=== PATIENT | female | born 1935 | race Caucasian/White ===

== ENCOUNTER 2019-08-12 17:44 | Emergency (ER) | payer MEDICARE ==
[2019-08-12] MEDS ORDERED: Lisinopril 10 MG TAB ONE (18:18)
[2019-08-12] MEDS ORDERED: Bisoprolol Fumarate 5 MG TAB PO SCH (18:30)
[2019-08-12 18:46] LABS: Mean Corpuscular Hemoglobin 30.6 pg (27.0-31.0); Mean Corpuscular Volume 92.7 fL (78.0-98.0); Mean Platelet Volume 8.7 fL (7.4-10.4); Platelet Count 129 thou/uL (130-400); Red Blood Cell (RBC) Count 4.23 mill/uL (4.20-5.40); White Blood Cell (WBC) Count 5.8 thou/uL (4.8-10.8)
[2019-08-12 18:55] LABS: ALT (SGPT) 17 U/L (8-55); AST (SGOT) 21 U/L (5-34); Albumin 4.1 g/dL (3.4-4.8); Alkaline Phosphatase 75 U/L (40-110); Anion Gap 13 mmol/L (10-20); BUN (Urea Nitrogen) 16 mg/dL (9.8-20.1); Bilirubin, Total 0.5 mg/dL (0.2-1.2); Calc. Creatinine Clearance 0 mL/min (70-130); Calcium 9.7 mg/dL (7.8-10.44); Carbon Dioxide 28 mmol/L (23-31); Chloride 107 mmol/L (98-107); Estimated GFR-MDRD 57; Globulin 2.8 g/dL (2.4-3.5); Glucose 95 mg/dL (83-110); Potassium 3.6 mmol/L (3.5-5.1); Protein, Total 6.9 g/dL (6.0-8.3); Sodium 144 mmol/L (136-145)
[2019-08-12 19:02] LABS: Lymphocytes 30 % (21-51); MDiff Complete? YES; Monocytes 16 % (0-10); Neutrophil 54 % (42-75); Platelet Morphology Comment Appears Adequate; RBC Morphology Normal
--- NOTE | 2019-08-16 15:24 | EKG ---
Test Reason : Blood Pressure : / mmHG Vent. Rate : 067 BPM Atrial Rate : 067 BPM P-R Int : 226 ms QRS Dur : 088 ms QT Int : 440 ms P-R-T Axes : 061 -12 055 degrees QTc Int : 464 ms Sinus rhythm with 1st degree A-V block Otherwise normal ECG Confirmed by HOLA KIDD, ADRIANO Mackenzie ([id number]), commercial production editor MILAGRO HUMMEL ([id number]) on 08/16/2019 3:23:48 PM Referred By: Confirmed By:ADRIANO SIMENTAL MD
== END 2019-08-12 19:19 | disposition home or self-care (01) ==
LOC: ERS 17:44
DX: I10 Essential (primary) hypertension (principal); Z79.899 Other long term (current) drug therapy
CPT/HCPCS: 36415; 80053; 83880; 84484; 85025; 93005

== ENCOUNTER 2019-10-19 06:56 | Outpatient (CLI) | payer MEDICARE, OTHER ==
[2019-10-19 12:28] LABS: Band 3 % (5-11); Hemoglobin 12.6 g/dL (12.0-16.0); Lymphocytes 24 % (21-51); MDiff Complete? YES; Mean Corpuscular HGB CONC 33.1 g/dL (32.0-36.0); Mean Corpuscular Hemoglobin 30.5 pg (27.0-31.0); Mean Platelet Volume 9.1 fL (7.4-10.4); Monocytes 20 % (0-10); Neutrophil 43 % (42-75); Platelet Count 136 thou/uL (130-400); Platelet Morphology Comment Appears Adequate; RBC Distribution Width 12.6 % (11.5-14.5); RBC Morphology Normal; Reactive Lymphocytes 10 % (0-10); Red Blood Cell (RBC) Count 4.14 mill/uL (4.20-5.40); White Blood Cell (WBC) Count 6.2 thou/uL (4.8-10.8)
[2019-10-20 11:43] LABS: SARS-CoV-2 MS2 Positive; SARS-CoV-2 N Gene Negative; SARS-CoV-2 S Gene Negative; SARS-CoV-2 orf1ab Negative
== END 2019-10-19 06:57 | disposition home or self-care (01) ==
LOC: LABBT 06:56
PROVIDERS: ATTEND Orthopaedic Surgery Hand Surgery
DX: Z01.812 Encounter for preprocedural laboratory examination (principal); Z11.59 Encounter for screening for other viral diseases; G56.02 Carpal tunnel syndrome, left upper limb
CPT/HCPCS: 85025; U0003; 87635

== ENCOUNTER 2019-10-23 10:29 | Day surgery (SDC) | payer MEDICARE ==
[2019-10-17 11:06] VITALS: BMI 23.1
[~2019-10-23 10:29] MED LIST: Dexamethasone 20 MG/5 ML VIAL ONE; EPHEDRINE 25 MG/5 ML SYRINGE ONE; Lidocaine 1% PF 5 ML VIAL ONE; Ondansetron PF 4 MG/2 ML Vial ONE; PROPOFOL 200 MG/20 ML VIAL ONE
[2019-10-23] MEDS ORDERED: Bupivacaine PF 0.5% 30 ML VIAL ONE (12:20)
[2019-10-23] MEDS ORDERED: Betamet Acet/Betamet Na Ph 30 MG/5 ML VIAL ONE (12:20)
[2019-10-23] MEDS ORDERED: Bacitracin Zinc Ointment 30 gm TUBE ONE (12:27)
[2019-10-23] MEDS ORDERED: Ketorolac Tromethamine 30 MG/ML VIAL ONE (15:16)
--- NOTE | 2019-10-23 16:38 | OP ---
DATE OF PROCEDURE: 10/23/2019 PREOPERATIVE DIAGNOSIS: Left carpal tunnel syndrome. POSTOPERATIVE DIAGNOSIS: Left carpal tunnel syndrome. PROCEDURE PERFORMED: Left carpal tunnel release. ESTIMATED BLOOD LOSS: 10 mL. TOURNIQUET TIME: 15 minutes. INJECTABLE: 1. 20 mL of 0.5% Marcaine. 2. 5 mL of Celestone around the area of median nerve stippling, found in the center of the transverse carpal ligament. DESCRIPTION OF PROCEDURE: After successful general endotracheal anesthesia, the limb was prepped and draped. The patient then had time-out done appropriately. We outlined incision in line with the ring finger from mediolateral as far distal as just short of Do's cardinal line and then as far proximal as 5 mm proximal to the volar wrist flexion crease. We injected this with 10 mL of 0.5% Marcaine and then waited 3 minutes, and exsanguinated the limb and inflated the tourniquet to 250 mmHg pressure. We carried the incision down through the skin to the palmaris and just on the ulnar to the palmaris. We made our 1st incision. This centered transverse carpal ligament. We identified underlying structures, and then from here, I released transverse carpal ligament using combination of [place] blade and tenotomy scissors from 1st the midpoint distally, where we protected all the nerves and we saw the motor branch, which was a type 1 takeoff. We then did the same from the midpoint proximally using combination of [place] blade and tenotomy scissors until we had released the transverse carpal ligament completely. We visualized that the median nerve had stippling without hourglass formation and some early flattening to go along with the atrophy at the median nerve in the center of transverse carpal ligament. Here, we applied 5 mL of Celestone. We released the tourniquet, obtained hemostasis, closed the incision with interrupted 4-0 nylon in a mattress pattern, placed a bulky dressing and the patient left the operating room without evidence of anesthetic or operative complication. Job ID: [id number]
== END 2019-10-23 16:39 | disposition home or self-care (01) ==
LOC: SDC 10:29
PROVIDERS: ATTEND Orthopaedic Surgery Hand Surgery
PROC: 01N50ZZ Release Median Nerve, Open Approach (ICD-10-PCS; principal; 2019-10-23)
DX: G56.03 Carpal tunnel syndrome, bilateral upper limbs (principal); I10 Essential (primary) hypertension; Z79.899 Other long term (current) drug therapy; Z88.5 Allergy status to narcotic agent
CPT/HCPCS: J0690; J0702; J1100; J1885; J2405; J2704; J3490; S0020

== ENCOUNTER 2020-03-01 17:03 | Inpatient (IN) | payer MEDICARE ==
--- NOTE | 2020-03-01 19:57 | PDOC.FPRHP ---
- History of Present Illness Chief Complaint: light headed History of Present Illness: Pt is a 84 yo F with PMH of HTN, HLD who presents from an outside ER with cc of light headedness. She states this morning she felt light headed and dizzy so she checked her BP and found it to be elevated at 208/103 which prompted her to go to the ED. She denies LOC. She usually takes her BP at home and it runs 150-170s SBP. She does note that she has been having to take her Clonidine more times each week. She does not have a specific parameter for which she takes it; sometimes with SBP >180, sometimes >190.She denies past episodes where she felt dizzy like this and states "I did not know what it felt like for my BP to be elevated". She endorses compliance with her medication. She denies CP, SOB, abdominal pain, N/V, edema, fevers/chills, recent head trauma. She lives at home by herself. ED Course: Clonidine, Lisinopril - Allergies/Adverse Reactions Allergies Allergy/AdvReac Type Severity Reaction Status Date / Time hydromorphone [From Dilaudid] Allergy Verified 03/01/20 22:52 morphine AdvReac Verified 03/01/20 22:52 - Home Medications Medication Instructions Recorded Confirmed Type Ascorbate Calcium [Vitamin C] 1,000 mg PO DAILY 10/17/19 03/01/20 History Vitamin 1 tablet PO DAILY 10/17/19 03/01/20 History Rosuvastatin Calcium 1 tab PO HS 10/17/19 03/01/20 History pyridOXINE [Vitamin B 6] 100 mg PO DAILY 10/17/19 03/01/20 History - History PMHx: HTN, HLD PSHx: carpal tunnel, removal of benign cyst in breast FHx: mom-stroke Social: denies x3 - Review of Systems General: denies: fever/chills, weight/appetite/sleep changes Eyes: denies: vision changes Respiratory: denies: cough, shortness of breath Cardiovascular: denies: chest pain, palpitation, edema Gastrointestinal: denies: nausea, vomiting, abdominal pain Genitourinary: denies: dysuria Neurological: denies: numbness, syncope, seizure - Vital signs BP: 174/90 HR: 64 RR: 16 Tmax: 98.4 Pox: 96% on RA Wt: 58.5kg - Physical Exam Constitutional: NAD, awake, alert and oriented HEENT: normocephalic and atraumatic, EOMI, grossly normal vision, grossly normal hearing Heart: RRR, normal S1/S2, no murmurs/rubs/gallops, pulses present, no edema Lungs: CTAB, no respiratory distress Abdomen: soft, non-tender Musculoskeletal: normal structure, normal tone, ROM grossly normal Neurological: no focal deficit, CN II-XII intact Skin: good turgor Heme/Lymphatic: no unusual bruising or bleeding Psychiatric: normal mood and affect, good judgment and insight, intact recent and remote memory FMR H&P: Results - Labs Result Diagrams: 03/02/20 04:48 03/02/20 04:48 - EKG Interpretation EKG: NSR FMR H&P: A/P - Plan hypertensive emergency -history of HTN, states compliance with meds -BP 203/98, s/p Clonidine and Lisinopril at outside facility which improved BP -BPs at home are usually 150-170s SBP -goal BP <160 -Hydralazine PRN indeterminate trop -high sensitivity troponin assay 24.4pg/mL at outside facility, which is positive -patient has no CP -.026 here, continue to trend -EKG NSR HTN -will change patient's home medications -plan to discontinue clonidine and bisoprolol -will keep patient on Lisinopril, add hydrochlorathiazide HLD -aware, continue home meds Hematuria -patient has history of Bright's disease -1+ blood on UA, 2+ protein -follow up outpatient Dispo: admit to tele obs. Anticipated LOS <48 hours Diet: HH Fluids: KVO DVT Ppx:Lovenox Code: DNI PCP: CC FMR H&P: Upper Level - Plan Date/Time: 03/01/201956 [place] Lucero PGY3, have evaluated this patient and agree with findings/plan as outlined by internal affairs commander resident. Pertinent changes/additions are listed here. 84yo F with pmh of HTN presents as transfer from [facility] for HTN and elevated trop. She presented after feeling like the room was spinning and that she may pass out and was found to have SBP 203 and elevated high sensitivity troponin assay. She does not have cardiac hx and denies CP/SOB/JONAS. On exam her BP is 174/96. otherwise all vitals wnl. RRR, CTAB, no apparent distress. A/P Hypertensive emergency A- improved. BP decreased to 174/96 with clonidine. End organ damage indicated by elevated trop at outside facility (high sensitivity TNI 24.4 and 24.8 on repeat, reference range 2-14.9). CXR wnl. P- admit to tele for monitoring -trend trops will risk stratify for ACS and consider stress test if they trend up -DC clonidine and bisprolol -restart lisinopril -start HCTZ -PRN hydralazine, goal SBP 150 hematuria A- blood on UA at outside facility, no urinary Sx. Pt reports hx of Brights disease and that she has had many lab tests done. 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
[2020-03-01] MEDS ORDERED: Aspirin 325 MG TAB ONE (20:49)
[2020-03-01 21:15] LABS: Troponin I 0.033 ng/mL (< 0.028)
[2020-03-01] MEDS ORDERED: Senokot S 8.6-50 MG TAB PO PRN (21:39)
[2020-03-01] MEDS ORDERED: Calcium Carbonate 500 MG ChewTAB PO PRN (21:39)
[2020-03-01] MEDS ORDERED: Acetaminophen 325 MG TAB PO PRN (21:39)
[2020-03-01] MEDS ORDERED: Guaifenesin DM 100-10/5 ML UDCUP PO PRN (21:39)
[2020-03-01] MEDS ORDERED: Ondansetron ODT 4 MG TAB PO PRN (21:39)
[2020-03-01] MEDS ORDERED: hydrALAZINE 20 MG/ML VIAL SLOW IVP PRN (21:40)
[2020-03-01] MEDS ORDERED: Hydrochlorothiazide 25 MG TAB PO SCH (22:00)
[2020-03-01 22:52] VITALS: BMI 21.4
[2020-03-02 00:43] LABS: Troponin I 0.027 ng/mL (< 0.028)
[2020-03-02 03:36] LABS: SARS-CoV-2 MS2 Positive; SARS-CoV-2 N Gene Negative; SARS-CoV-2 S Gene Negative; SARS-CoV-2 by NAA Not Detected (NotDetected); SARS-CoV-2 orf1ab Negative
[2020-03-02 05:36] LABS: ALT (SGPT) 15 U/L (8-55); AST (SGOT) 21 U/L (5-34); Albumin 3.4 g/dL (3.4-4.8); Alkaline Phosphatase 85 U/L (40-110); Anion Gap 13 mmol/L (10-20); BUN (Urea Nitrogen) 21 mg/dL (9.8-20.1); Bilirubin, Total 0.4 mg/dL (0.2-1.2); Calc. Creatinine Clearance 34 mL/min (70-130); Calcium 9.2 mg/dL (7.8-10.44); Carbon Dioxide 27 mmol/L (23-31); Chloride 105 mmol/L (98-107); Globulin 2.5 g/dL (2.4-3.5); Glucose 104 mg/dL (83-110); Potassium 3.9 mmol/L (3.5-5.1); Protein, Total 5.9 g/dL (6.0-8.3); Sodium 141 mmol/L (136-145)
[2020-03-02 06:21] LABS: Band 2 % (5-11); Hemoglobin 12.3 g/dL (12.0-16.0); Lymphocytes 32 % (21-51); MDiff Complete? YES; Mean Corpuscular HGB CONC 32.6 g/dL (32.0-36.0); Mean Corpuscular Hemoglobin 30.3 pg (27.0-31.0); Mean Corpuscular Volume 92.8 fL (78.0-98.0); Mean Platelet Volume 8.8 fL (7.4-10.4); Monocytes 12 % (0-10); Neutrophil 54 % (42-75); Platelet Count 157 thou/uL (130-400); RBC Distribution Width 12.3 % (11.5-14.5); Red Blood Cell (RBC) Count 4.05 mill/uL (4.20-5.40); White Blood Cell (WBC) Count 4.9 thou/uL (4.8-10.8)
[2020-03-02] MEDS ORDERED: Lisinopril/Hydrochlorothiazide 10 mg/12.5 mg Tablet PO SCH (09:00)
[2020-03-02] MEDS ORDERED: Enoxaparin Sodium 40 MG/0.4 ML SYRINGE ONE (09:25)
[2020-03-02] MEDS: Enoxaparin Sodium 40 MG/0.4 ML SYRINGE SC SCH (09:30)
[2020-03-02] MEDS: Lisinopril/Hydrochlorothiazide 20 mg/12.5 mg Tablet PO SCH (09:31)
[2020-03-02] MEDS: pyridOXINE 50 MG (B6) TAB PO SCH (10:31)
[2020-03-02] MEDS: Ascorbic Acid 500 mg Chewable Tablet PO SCH (10:31)
[2020-03-02] MEDS: Prenatal Vitamin 1 TAB PO SCH (10:31)
[2020-03-02] MEDS ORDERED: hydrALAZINE 20 MG/ML VIAL ONE (15:01)
--- NOTE | 2020-03-02 15:59 | PDOC.FM ---
- Subjective Subjective: Patient resting in bed when entering the room. Denies headache, vision changes, chest pain, SOB, nausea, and abdominal pain. - Objective MAR Reviewed: Yes Vital Signs & Weight: Vital Signs (12 hours) Temp Pulse Resp BP BP Pulse Ox 03/02/20 15:20 67 190/86 H 03/02/20 10:31 98.1 F 79 18 141/69 H 95 03/02/20 09:31 70 132/88 Weight Weight 58.57 kg Result Diagrams: 03/02/20 04:48 03/02/20 04:48 Phys Exam - Physical Examination Constitutional: NAD HEENT: moist MMs, sclera anicteric Neck: supple, full ROM Respiratory: no wheezing, clear to auscultation bilateral Cardiovascular: RRR, no significant murmur Gastrointestinal: soft, non-tender, positive bowel sounds Musculoskeletal: no edema Neurological: non-focal, moves all 4 limbs Psychiatric: normal affect, A&O x 3 Skin: no rash Dx/Plan - Plan Plan: Hypertensive emergency in setting of chronic HTN Reports compliance with meds. Reports BP 150-170s at home. Asymptomatic. -Discontinue home clonidine, bisoprolol -Increase lisinopril 10mg daily to 20 mg daily -Start HCTZ 12.5mg daily -Hydralazine PRN Indeterminate trop High sensitivity troponin assay 24.4pg/mL at outside facility -Trended .026 -> 0.33 -> 0.26 -EKG PRN HLD -aware, continue home meds Hematuria -patient has history of Bright's disease -1+ blood on UA, 2+ protein -follow up outpatient DVT Ppx:Lovenox Code: DNI PCP: PCP in [facility] Dispo: Likely discharge later today pending adequate control of BP Addendum - Attending - Attending Attestation Date/Time: 03/02/20 1723 I personally evaluated the patient and discussed the management with Dr. Polanco. H&P by Drs. Holley/Elise reviewed and repeated by me around 0900 am. I agree with the History, Examination, Assessment and Plan documented above with any addition or exceptions noted below. Hypertensive emergency- increased home medication. this am her symptoms had completely resolved. evaluate bp today and if <160/90 may d/c home 1 degree AV block- mild. f/u with PCP. Patient will be [facility] with bradycardia- repeat trop neg and ekg with mild qtc prolongation. Will get carotid doppler and echo.
--- NOTE | 2020-03-02 17:03 | PDOC.EVN ---
Event Note - Event Note Event Note: While patient was in the ED she had a near-syncopal episode while laying flat. She denies straining or activity at the time of the event. RN reports HR in the low 40s and 38 briefly. Episode lasted approximately 1 minute. Sternal rub and stimulation aroused the patient. She is conversant, alert and oriented x 3, and appears to be at baseline. BP and HR have returned to normal. EKG was read as NSR with prolonged QT. HR in the 60s. We will monitor on TELE overnight. Plan to get ECHO and carotid doppler studies. Troponin pending.
[2020-03-02 17:23] LABS: Bacteria/HPF None Seen HPF (None Seen); Bilirubin Negative (Negative); Blood, Urine Negative (Negative); Clarity Clear (Clear); Glucose, Urine (Dipstick) Normal (Negative); Ketone, Urine Negative (Negative); Leukocyte Negative Leu/uL (Negative); Nitrite Negative (Negative); Protein, Urine (Dipstick) 50 mg/dL (Neg-Trace); RBC/HPF 0-3 HPF (0-3); Specific Gravity, Urine 1.008 (1.002-1.036); Squamous Epithelial 0-3 HPF (0-3); Urobilinogen Normal mg/dL (Less than 2); WBC/HPF 0-3 HPF (0-3); pH, Urine 7.5 (5.0-9.0)
[2020-03-02] MEDS: Rosuvastatin 5 MG TAB PO SCH (21:04)
--- NOTE | 2020-03-02 23:20 | ULT ---
BILATERAL CAROTID DUPLEX ULTRASOUND: HISTORY: Presyncope TECHNIQUE: Grayscale, color-flow and spectral Doppler ultrasound imaging of the extracranial carotid artery syst ems and vertebral arteries was performed bilaterally. FINDINGS: Right carotid: Small amount of calcified plaque in the right carotid bifurcation and proximal interna l carotid artery Left carotid: Calcified plaque with shadowing in the left carotid bifurcation. The peak systolic velocity in the right ICA measures 71.8 cm/s. The peak systolic velocity in the ri ght CCA measures 128.6 cm/s. The peak systolic velocity in the left ICA measures 85.2 cm/s. The peak systolic velocity in the l eft CCA measures 185.6 cm/s. The right IC/CC ration is0.6. The left IC/CC ratio is 0.5. Vertebral flow: antegrade, bilaterally. . IMPRESSION: 1. Atherosclerosis involving bilateral carotid arteries 2. Peak systolic velocity of the left common carotid artery suggesting moderate (50-69%) stenosis. CT angiogram of the head and neck are recommended.
[2020-03-03 04:51] LABS: ALT (SGPT) 20 U/L (8-55); AST (SGOT) 23 U/L (5-34); Albumin 3.4 g/dL (3.4-4.8); Alkaline Phosphatase 86 U/L (40-110); Anion Gap 16 mmol/L (10-20); BUN (Urea Nitrogen) 24 mg/dL (9.8-20.1); Bilirubin, Total 0.3 mg/dL (0.2-1.2); Calc. Creatinine Clearance 31 mL/min (70-130); Calcium 9.2 mg/dL (7.8-10.44); Carbon Dioxide 26 mmol/L (23-31); Chloride 103 mmol/L (98-107); Globulin 2.7 g/dL (2.4-3.5); Glucose 117 mg/dL (83-110); Potassium 3.6 mmol/L (3.5-5.1); Protein, Total 6.1 g/dL (6.0-8.3); Sodium 141 mmol/L (136-145)
[2020-03-03 05:30] LABS: Band 5 % (5-11); Hemoglobin 12.9 g/dL (12.0-16.0); Lymphocytes 14 % (21-51); MDiff Complete? YES; Mean Corpuscular HGB CONC 34.2 g/dL (32.0-36.0); Mean Corpuscular Hemoglobin 30.6 pg (27.0-31.0); Mean Corpuscular Volume 89.5 fL (78.0-98.0); Mean Platelet Volume 8.9 fL (7.4-10.4); Monocytes 24 % (0-10); Neutrophil 54 % (42-75); Platelet Count 182 thou/uL (130-400); RBC Distribution Width 12.4 % (11.5-14.5); Reactive Lymphocytes 3 % (0-10); Red Blood Cell (RBC) Count 4.22 mill/uL (4.20-5.40); White Blood Cell (WBC) Count 8.6 thou/uL (4.8-10.8)
--- NOTE | 2020-03-03 05:39 | PDOC.FM ---
- Subjective Subjective: Yesterday afternoon, patient experienced near syncope episode with HR 40s and mild prolonged QT on EKG. BP max 190/80 at 1520, requiring hydralazine 10mg. This am, patient says she feels well. Denies further feelings of near syncope. Also denies headache, vision changes, chest pain, SOB, abdominal pain, lightheadedness and dizziness. - Objective MAR Reviewed: Yes Vital Signs & Weight: Vital Signs (12 hours) Temp Pulse Ox 03/03/20 04:13 98.0 F 03/03/20 00:28 100 03/02/20 23:10 98.7 F 03/02/20 22:41 98.7 F 03/02/20 20:00 95 03/02/20 19:32 97.2 F L 03/02/20 18:19 98.6 F Weight Weight 58.513 kg Most Recent Monitor Data Heart Rate from ECG 68 NIBP 108/63 NIBP BP-Mean 78 Respiration from ECG 16 SpO2 95 I&O: 03/01/20 03/02/20 03/03/20 06:59 06:59 06:59 Intake Total 300 Output Total 775 Balance -475 Result Diagrams: 03/03/20 03:50 03/03/20 03:50 Phys Exam - Physical Examination Constitutional: NAD Daughter present in room HEENT: moist MMs, sclera anicteric Neck: full ROM Respiratory: no wheezing, clear to auscultation bilateral Cardiovascular: RRR, no significant murmur Gastrointestinal: soft, positive bowel sounds Musculoskeletal: no edema Neurological: moves all 4 limbs Psychiatric: normal affect, A&O x 3 Skin: no rash Dx/Plan - Plan Plan: Hypertensive emergency in setting of chronic HTN Reports compliance with meds. Reports BP 150-170s at home. -Discontinued home clonidine, bisoprolol -Increased home lisinopril 10mg daily to 20 mg daily in 03/02 with improvement of BP -Continue HCTZ 12.5mg daily -Hydralazine PRN - required once yesterday afternoon due to BP 190 systolic Left carotid artery stenosis Experienced near syncope episode on 03/02 with HR 40s and mild prolonged QT -Carotid US: bilateral atherosclerosis, LCA with moderate (50-69%) stenosis -F/u echo for further investigation Indeterminate trop High sensitivity troponin assay 24.4pg/mL at outside facility -Trended .026 -> 0.33 -> 0.26 -> 0.022 -EKG PRN HLD -aware, continue home meds Hematuria -patient has history of Bright's disease -1+ blood on UA, 2+ protein -follow up outpatient DVT Ppx:Lovenox Code: DNI PCP: PCP in [facility] Dispo: Home pending further medical management Addendum - Attending - Attending Attestation Date/Time: 03/03/20 1047 I personally evaluated the patient and discussed the management with Dr. Polanco. I agree with the History, Examination, Assessment and Plan documented above with any addition or exceptions noted below. Hypertensive emergency- improved and now slightly low BP. Syncope- ECHO normal- carotid doppler showed stenosis. Carotid stenosis- check with CTA. Mild LAURA- give some fluid due to getting CTA.
[2020-03-03] MEDS ORDERED: Lactated Ringer's 500 ML IV SCH (08:00)
[2020-03-03] MEDS ORDERED: Lactated Ringer's 1,000 ML IV SCH (08:45)
[2020-03-03] MEDS: Ascorbic Acid 500 mg Chewable Tablet PO SCH (09:19)
[2020-03-03] MEDS: Lisinopril/Hydrochlorothiazide 20 mg/12.5 mg Tablet PO SCH (09:19)
[2020-03-03] MEDS: Prenatal Vitamin 1 TAB PO SCH (09:21)
[2020-03-03] MEDS: pyridOXINE 50 MG (B6) TAB PO SCH (09:22)
[2020-03-03] MEDS: Enoxaparin Sodium 40 MG/0.4 ML SYRINGE SC SCH (09:23)
[2020-03-03] MEDS ORDERED: Iopamidol-370 76% 500 ML 1 ML ONE (11:42)
--- NOTE | 2020-03-03 17:44 | CT ---
EXAM: CT ANGIOGRAM OF THE NECK INDICATION: Left carotid stenosis noted on recent ultrasound COMPARISON: None TECHNIQUE: CT angiogram of the neck are performed in the axial plane. Three-dimensional reformatted i mages are submitted for interpretation. FINDINGS: POSTCONTRAST SOFT TISSUE NECK CT: Aerodigestive tract:Aerodigestive tract is patent. Limited evaluation the oral cavity due to dental a malgam artifact. Midline fatty raphae of the tongue is preserved. Epiglottis has a normal caliber. Preepiglottic fat is preserved. Sinuses: Opacification of the right maxillary sinus. Orbits: Bilateral ocular lenses implants are appropriately located. Both globes are intact. Retrobulb ar fat is preserved. Symmetric attenuation the optic nerves and ocular rectus muscles. Salivary glands:Symmetric attenuation of the parotid and submandibular glands Thyroid gland: Heterogeneous enlarged. Incompletely evaluated Lymph nodes: No evidence of lymphadenopathy by size criteria. Paraspinal muscles: Symmetric attenuation of the sternocleidomastoid muscles. Appropriate attenuation of the paraspinal muscles. Cervical spine:There are varying degrees of central canal stenosis and foramina the basis of degenera tive change. There is multilevel facet arthropathy. Cervical spine vertebral body heights are maintained. No fracture. Upper mediastinum and lung apices: Chronic changes in the visualized lung parenchyma CTA OF THE NECK WITH CONTRAST: Aorta: Atherosclerosis of the aorta Right carotid artery: Appropriate enhancement and luminal diameter. No significant stenosis based upo n NASCET criteria. Mild calcified and noncalcified atherosclerotic disease in the carotid bifurcation and proximal internal carotid artery. Left carotid: Appropriate enhancement and luminal diameter. No symmetric stenosis based upon NASCET c riteria. Mild calcified and noncalcified atherosclerotic disease in the carotid bifurcation and proximal internal carotid artery. Subclavian arteries:Symmetric and patent Vertebral arteries:Patent throughout their course in the neck IMPRESSION: 1. No hemodynamically significant stenosis, occlusion or aneurysmal formation. 2. Enlarged, heterogeneous thyroid gland. 3. Presumed chronic changes of the lung parenchyma 4. Right maxillary sinus disease.
[2020-03-03] MEDS: Rosuvastatin 5 MG TAB PO SCH (20:19)
[2020-03-04 04:38] LABS: ALT (SGPT) 17 U/L (8-55); AST (SGOT) 20 U/L (5-34); Albumin 3.4 g/dL (3.4-4.8); Alkaline Phosphatase 76 U/L (40-110); Anion Gap 14 mmol/L (10-20); BUN (Urea Nitrogen) 24 mg/dL (9.8-20.1); Bilirubin, Total 0.3 mg/dL (0.2-1.2); Calc. Creatinine Clearance 31 mL/min (70-130); Carbon Dioxide 28 mmol/L (23-31); Chloride 104 mmol/L (98-107); Globulin 2.4 g/dL (2.4-3.5); Glucose 113 mg/dL (83-110); Potassium 3.7 mmol/L (3.5-5.1); Protein, Total 5.8 g/dL (6.0-8.3); Sodium 142 mmol/L (136-145)
[2020-03-04 06:26] LABS: Hemoglobin 12.1 g/dL (12.0-16.0); MDiff Complete? YES; Mean Corpuscular HGB CONC 33.3 g/dL (32.0-36.0); Mean Corpuscular Hemoglobin 30.1 pg (27.0-31.0); Mean Corpuscular Volume 90.4 fL (78.0-98.0); Mean Platelet Volume 8.8 fL (7.4-10.4); Platelet Count 164 thou/uL (130-400); RBC Distribution Width 12.4 % (11.5-14.5); Red Blood Cell (RBC) Count 4.02 mill/uL (4.20-5.40); White Blood Cell (WBC) Count 5.3 thou/uL (4.8-10.8)
[2020-03-04 06:27] LABS: Band 1 % (5-11); Eosinophils 2 % (0-10); Lymphocytes 46 % (21-51); Monocytes 14 % (0-10); Neutrophil 37 % (42-75)
--- NOTE | 2020-03-04 06:30 | PDOC.FM ---
- Subjective Subjective: Ms. Christian has no complaints this morning. She denies headache, CP, or SOB. - Objective Vital Signs & Weight: Vital Signs (12 hours) Temp Pulse Ox 03/04/20 03:35 97.2 F L 03/04/20 00:03 98.4 F 03/03/20 20:00 100 03/03/20 19:53 97.4 F L Weight Weight 58.513 kg Most Recent Monitor Data Heart Rate from ECG 65 NIBP 93/50 NIBP BP-Mean 64 Respiration from ECG 16 SpO2 95 I&O: 03/02/20 03/03/20 03/04/20 06:59 06:59 06:59 Intake Total 460 2525 Output Total 775 1950 Balance -315 575 Result Diagrams: 03/04/20 03:47 03/04/20 03:47 Radiology Reviewed by me: Yes Radiology: CTA: no stenosis, R maxillary sinus disease, enlarged thyroid, lung parenchymal changes Phys Exam - Physical Examination Constitutional: NAD HEENT: moist MMs, sclera anicteric Neck: full ROM Respiratory: no wheezing, clear to auscultation bilateral Cardiovascular: RRR, no significant murmur Gastrointestinal: soft, non-tender Musculoskeletal: no edema, pulses present Neurological: moves all 4 limbs Psychiatric: normal affect, A&O x 3 Dx/Plan - Plan Plan: Hypertensive emergency in setting of chronic HTN Reports compliance with meds. Reports BP 150-170s at home. -Discontinued home clonidine, bisoprolol -Increased home lisinopril 10mg daily to 20 mg daily in 03/02 with improvement of BP -Continue HCTZ 12.5mg daily -Hydralazine PRN - has not required since 03/02 Left carotid artery stenosis Experienced near syncope episode on 03/02 with HR 40s and mild prolonged QT -Carotid US: bilateral atherosclerosis, LCA with moderate (50-69%) stenosis -CTA: no stenosis, R maxillary sinus disease, enlarged thyroid, lung parenchymal changes -ECHO: 55-60% EF, mild tricuspid regurgitation Indeterminate trop High sensitivity troponin assay 24.4pg/mL at outside facility -Trended .026 -> 0.33 -> 0.26 -> 0.022 -EKG PRN HLD -aware, continue home meds Hematuria -patient has history of Bright's disease -1+ blood on UA, 2+ protein -follow up outpatient DVT Ppx:Lovenox Code: DNI PCP: PCP in [facility] Dispo: Ready for discharge Addendum - Attending - Attending Attestation Date/Time: 03/04/20 1113 I personally evaluated the patient and discussed the management with Dr. Do. I agree with the History, Examination, Assessment and Plan documented above with any addition or exceptions noted below. Patient feels improved and well. BP much improved from admission. Stable for discharge home and will follow up with our clinic outpatient for further management.
[2020-03-04] MEDS: Enoxaparin Sodium 40 MG/0.4 ML SYRINGE SC SCH (09:14)
[2020-03-04] MEDS: Ascorbic Acid 500 mg Chewable Tablet PO SCH (09:15)
[2020-03-04] MEDS: pyridOXINE 50 MG (B6) TAB PO SCH (09:15)
[2020-03-04] MEDS: Lisinopril/Hydrochlorothiazide 20 mg/12.5 mg Tablet PO SCH (09:16)
[2020-03-04 09:17] VITALS: BP 123/62
[2020-03-04] MEDS: Prenatal Vitamin 1 TAB PO SCH (09:24)
[2020-03-04 11:37] VITALS: TEMP 97.7
--- NOTE | 2020-03-05 14:30 | DIS ---
DATE OF ADMISSION: 03/01/2020 DATE OF DISCHARGE: 03/04/2020 RESIDENT: Maninder Do MD ADMITTING ATTENDING: Kate Arevalo MD DISCHARGE ATTENDING: Daniel John MD CONSULTS: Walking Program. PROCEDURES: 1. Carotid Doppler study showed atherosclerosis involving bilateral carotid artery, peak systolic velocity of left common carotid artery suggesting moderate stenosis. 2. CT angiography showed no hemodynamically significant stenosis, occlusion or aneurysm formation, enlarged heterogeneous thyroid gland, presumed chronic changes of lung parenchyma, and right maxillary sinus disease. 3. Echocardiogram showed an ejection fraction of 50% to 60% and mild tricuspid regurgitation. PRIMARY DIAGNOSES: 1. Hypertensive urgency in the setting of chronic hypertension. 2. Indeterminate stroke. 3. Left carotid artery stenosis. SECONDARY DIAGNOSES: 1. Hyperlipidemia. 2. Hematuria. DISCHARGE MEDICATIONS: 1. Vitamin D 600 mg p.o. daily. 2. vitamin 1 tablet p.o. daily. 3. Vitamin C 1000 mg p.o. daily. 4. Rosuvastatin one tab p.o. at night. 5. Lisinopril-hydrochlorothiazide 1 tab p.o. daily. Discontinued Medications: 1. Bisoprolol one tablet p.o. daily. 2. Clonidine 0.1 mg p.o. t.i.d. 3. Lisinopril 10 mg one tab p.o. daily. HISTORY OF PRESENT ILLNESS AND BRIEF HOSPITAL COURSE: Ms. Christian is an 84-year-old female with a past medical history of hypertension, hyperlipidemia, presented to an outside ER with a complaint of lightheadedness. The patient reports she felt lightheaded and dizzy in the morning of presentation and checked her blood pressure and found it to be 208/103, it prompted her to go to the ED. She denied loss of consciousness. She usually takes her blood pressure at home and it runs 150 to 170 systolic. She does note that she has been having to take her clonidine more times each week, sometimes she takes it with the systolic greater than 180s and sometimes she takes it with the systolic greater than 190. She endorses compliance with her medicine. Denies chest pain, shortness of breath, abdominal pain, nausea, vomiting, edema, fevers, chills, or recent head trauma. The patient lives at home by herself. During hospital stay, the patient's clonidine and bisoprolol were discontinued. Her home lisinopril was increased from 10 mg daily to 20 mg daily with improvement of her blood pressure. The patient had a near syncopal episode on March 02 with a heart rate in the 40s and mild prolonged QT. Carotid Dopplers revealed bilateral atherosclerosis in the left coronary artery with moderate stenosis. CTA showed no stenosis, but did show right maxillary sinus disease and large thyroid and lung parenchymal changes. Echocardiogram showed an ejection fraction of 50% to 60% and mild tricuspid regurgitation. Upon admission, the patient also had an indeterminate troponin of 0.026. These were trended and showed no change. EKG showed no ST changes. The patient did report hematuria and has a history of Bright's disease. UA showed 1+ blood and 2+ protein, this is recommended to be followed outpatient. The patient also noted to have a monocytosis with CBC revealing 12% monocytes, 24% and 14% throughout her stay. The patient had good blood pressure control during the duration of her stay and was discharged home on an increased dose of lisinopril, discontinuing her clonidine and metoprolol. The patient was instructed to follow as an outpatient for her monocytosis and enlarged thyroid. The patient does not have a primary care doctor, was given [place] [facility] and physician's card to potentially follow up. DISPOSITION: Stable. DISCHARGE INSTRUCTIONS: 1. Location: Home. 2. Diet: Regular. 3. Activity: As tolerated. 4. Followup: Follow up on monocytosis and enlarged thyroid with primary care provider. Job ID: [id number]
--- NOTE | 2020-03-07 15:19 | PQF ---
CLINICAL DOCUMENTATION CLARIFICATION FORM: Dear Dr. Maninder Do / Dr. Daniel John Date: 03.07.20 Please exercise your independent, professional judgment in responding to the clarification form. Clinical indicators are provided on the bottom of this form for your review. Please check appropriate box(es): Conflicting documentation was noted in the Medical Record; please clarify if patient is being treated/monitored for: [ ] Hypertensive Urgency [ x ] Hypertensive Emergency [ ] Other diagnosis [ ] Unable to determine For continuity of documentation, please document condition throughout progress notes and discharge summary. Thank You. To be completed by CDI/Coding staff for physician review: CLINICAL INDICATORS - SIGNS / SYMPTOMS/ LABS / RESULTS AND LOCATION IN EMR 12.4 H&P (Light): * Presented to outside ER with lightheadedness. She felt light headed and dizzy.BP found to be elevated 208/103 which prompted her to go to ED. *Hypertensive emergency 12.5 PN (Polanco): hypertensive emergency in setting of chronic HTN 12.8 DC Summary (Ernestina): hypertensive urgency in the setting of chronic hypertension RISK FACTORS / RESULTS AND LOCATION IN EMR 12.4 H&P (Light): * HTN TREATMENT / RESULTS AND LOCATION IN EMR 12.4 H&P (Light): *Clonidine and Lisinopril at outside facility *Hydralazine PRN 12.5 PN (Polanco): Discontinue home clonidine, bisoprolol, increase lisinopril 10mg daily to 20 mg daily; start HCTZ 12.5 mg daily; hydralazine PRN CDS Signature: Sagrario Snowden RN, CCDS Phone #: [phone] [email or web address] This is a permanent part of the Medical Record [facility]
== END 2020-03-04 13:07 | disposition home or self-care (01) | DRG 305 ==
LOC: ERS 17:03 → ERHOLD 20:14 → IMCU/EMU 03-02 18:28
PROVIDERS: ADMIT Family Medicine; ATTEND Family Medicine
DX: I16.0 Hypertensive urgency (principal); N17.9 Acute kidney failure, unspecified; I16.1 Hypertensive emergency; Z20.828 Contact with and (suspected) exposure to other viral communicable diseases; E78.5 Hyperlipidemia, unspecified; R31.9 Hematuria, unspecified; I44.0 Atrioventricular block, first degree; I65.22 Occlusion and stenosis of left carotid artery; R94.31 Abnormal electrocardiogram [ECG] [EKG]; I10 Essential (primary) hypertension; Z88.5 Allergy status to narcotic agent; Z88.8 Allergy status to other drugs, medicaments and biological substances; Z79.899 Other long term (current) drug therapy; N05.9 Unspecified nephritic syndrome with unspecified morphologic changes; E04.9 Nontoxic goiter, unspecified; D72.821 Monocytosis (symptomatic)
CPT/HCPCS: 36415; 70498; 80053; 81003; 81015; 84484; 85025; 87635; 93005; 93306; 93880; 94760; J0360; J1650; Q9967; U0003